=== PATIENT | female | born 2000 | race Two or more races ===

== ENCOUNTER 2024-12-03 09:33 | Emergency (ER) | payer OTHER ==
[~2024-12-03] VITALS: Ht 152.4 cm; Wt 52.2 kg
[2024-12-03] MEDS ORDERED: PRENATAL + DHA1 EAC1 (09:50)
== END 2024-12-03 13:37 | disposition home or self-care (01) ==
LOC: ER 09:35
DX: S39.83XA Other specified injuries of pelvis, initial encounter (principal); V49.88XA Car occupant (driver) (passenger) injured in other specified transport accidents, initial encounter; Y93.89 Activity, other specified; Y92.89 Other specified places as the place of occurrence of the external cause; Y99.8 Other external cause status; O26.899 Other specified pregnancy related conditions, unspecified trimester; R10.2 Pelvic and perineal pain; Z3A.15 15 weeks gestation of pregnancy; Z91.018 Allergy to other foods

== ENCOUNTER 2025-04-18 20:05 | Inpatient (IN) | payer OTHER ==
[~2025-04-18] VITALS: Ht 172.7 cm; Wt 62.1 kg
[2025-04-18 18:23] VITALS: BP 116/83
[~2025-04-18 20:05] MED LIST: PRENATAL + DHA1 EAC1
[2025-04-18] MEDS ORDERED: PROMETHAZINE HCL 25 MG/ML AMPUL IV ONE (20:30)
[2025-04-18] MEDS ORDERED: RINGERS SOLUTION,LACTATED 1,000 ML IV SCH (20:30)
[2025-04-18 20:36] LABS: BASO % 0.1 % (0.1-1.2); EOS # 0.03 (0.04-0.54); EOS % 0.2 % (0.7-7.0); LYMPH # 1.47 (1.18-3.74); LYMPH % 11.0 % (19.3-53.1); MEAN PLATELET VOLUME 10.00 fl (9.4-12.4); MONO # 1.16 (0.24-0.82); MONO % 8.7 % (4.7-12.5); NEUT # 10.55 (1.56-6.13); NEUT % 79.1 % (34.0-71.1); RED CELL DISTRIBUTION WIDTH 12.7 % (11.6-14.4); URINE APPEARANCE Clear; URINE BILIRRUBIN Negative (NEGATIVE); URINE BLOOD Negative; URINE COLOR Yellow; URINE LEUKOCYTE Trace; URINE NITRATE Negative; URINE PROTEIN Trace (NEGATIVE); URINE UROBILINOGEN 0.2 E.U./dl
[2025-04-18 20:40] LABS: URINE BACTERIA 3598.3 uL (0.0-1933); URINE EPITHELIAL CELLS 44.4 uL (0.0-38.8); URINE WBC 18.9 uL (0.0-23.2)
[2025-04-18 20:43] LABS: URINE GLUCOSE 100 MG/DL (NEGATIVE)
[2025-04-18 20:44] LABS: URINE CAST 0.43 uL (0.0-1.40); URINE KETONE 40 (NEGATIVE); URINE RBC 1.1 uL (0.0-20.8)
[2025-04-18 21:08] LABS: ALT/SGPT 34.0 U/L (12-78); AST/SGOT 32.0 U/L (15-37); BILIRUBIN TOTAL 0.42 mg/dL (0.3-1.2); BUN CREA RATIO 6.0 (7.0-25.0); CREATININE SERUM 0.69 mg/dL (0.55-1.02); GFR 105.43; GLOBULINA 3.9 G/DL (2.4-3.5); GLUCOSE FASTING 82.0 mg/dL (65-100); OSMOLALITY SERUM 274.0 MOSM/KG (275-295)
[2025-04-18] MEDS ORDERED: BETAMETHASONE ACETATE,SOD PHOS 30 MG/5 ML ML IM ONE (21:30)
[2025-04-18] MEDS ORDERED: MAGNESIUM SULFATE IN WATER 100 ML IV SCH (22:00)
[2025-04-18] MEDS ORDERED: MAGNESIUM SULFATE IN WATER 500 ML IV SCH (22:00)
[2025-04-18 23:43] VITALS: BP 119/68
[2025-04-19] VITALS (7 sets, daily range): BP systolic 91–116; BP diastolic 58–83; O2SAT 98
[2025-04-19] MEDS ORDERED: BETAMETHASONE ACETATE,SOD PHOS 30 MG/5 ML ML IM NR (21:30)
[2025-04-19 21:54] LABS: BASO % 0.1 % (0.1-1.2); EOS # 0.03 (0.04-0.54); EOS % 0.2 % (0.7-7.0); LYMPH # 1.45 (1.18-3.74); LYMPH % 11.6 % (19.3-53.1); MEAN PLATELET VOLUME 9.80 fl (9.4-12.4); MONO # 1.24 (0.24-0.82); MONO % 9.9 % (4.7-12.5); NEUT # 9.60 (1.56-6.13); NEUT % 76.8 % (34.0-71.1); RED CELL DISTRIBUTION WIDTH 12.7 % (11.6-14.4)
[2025-04-19 22:23] LABS: ALT/SGPT 28.0 U/L (12-78); AST/SGOT 23.0 U/L (15-37); BILIRUBIN TOTAL 0.21 mg/dL (0.3-1.2); BUN CREA RATIO 10.0 (7.0-25.0); CREATININE SERUM 0.58 mg/dL (0.55-1.02); GFR 128.83; GLOBULINA 3.3 G/DL (2.4-3.5); GLUCOSE FASTING 129.0 mg/dL (65-100); OSMOLALITY SERUM 282.0 MOSM/KG (275-295)
[2025-04-20 04:13] VITALS: BP 91/44
[2025-04-20 06:29] VITALS: BP 98/51; O2SAT 99
== END 2025-04-20 10:23 | disposition home or self-care (01) | DRG 833 ==
LOC: OBS/DEL 20:05 → LDR 04-19 14:12
PROVIDERS: ADMIT Obstetrics & Gynecology Gynecology; ATTEND Obstetrics & Gynecology Gynecology
PROC: 4A1HXCZ Monitoring of Products of Conception, Cardiac Rate, External Approach (ICD-10-PCS; principal; 2025-04-19)
DX: O26.893 Other specified pregnancy related conditions, third trimester (principal); R10.2 Pelvic and perineal pain; Z3A.34 34 weeks gestation of pregnancy

== ENCOUNTER 2025-04-21 13:52 | Inpatient (IN) | payer OTHER ==
[~2025-04-21] VITALS: Ht 172.7 cm; Wt 61.2 kg
[2025-04-21 13:04] VITALS: BP 121/72
[2025-04-21] MEDS ORDERED: MAGNESIUM SULFATE IN WATER 500 ML IV SCH (14:00)
[2025-04-21] MEDS ORDERED: ONDANSETRON HCL 2 MG/ML VIAL IV SCH (14:00)
[2025-04-21] MEDS ORDERED: DEXTROSE 5%-LACTATED RINGERS 1,000 ML IV SCH (14:00)
[2025-04-21] MEDS ORDERED: MAGNESIUM SULFATE IN WATER 100 ML IV ONE (14:00)
[2025-04-21 15:13] VITALS: BP 113/61
[2025-04-21] MEDS ORDERED: FERROUS SULFATE 325 MG TABLET.EC PO SCH (16:00)
[2025-04-21 19:30] VITALS: BP 136/84
[2025-04-21] MEDS ORDERED: MORPHINE SULFATE 4 MG/ML VIAL IV STA (19:49)
[2025-04-21 20:03] VITALS: BP 136/84
[2025-04-21 23:29] VITALS: BP 115/66
[2025-04-22 03:25] VITALS: BP 106/41
[2025-04-22 06:21] VITALS: BP 107/63; O2SAT 98
[2025-04-22] MEDS ORDERED: PNV,CALCIUM 72/IRON/FOLIC ACID 1 TAB TABLET PO SCH (09:00)
[2025-04-22 11:30] VITALS: BP 106/64
[2025-04-22 11:38] VITALS: BP 106/64; O2SAT 98
[2025-04-22 15:26] VITALS: BP 110/63
[2025-04-22] MEDS ORDERED: NIFEDIPINE 30 MG TAB.SA.OSM PO SCH (17:00)
[2025-04-22 17:46] VITALS: BP 111/71
[2025-04-23 02:10] VITALS: BP 100/60
[2025-04-23] MEDS ORDERED: MORPHINE SULFATE 4 MG/ML VIAL IV ONE (03:30)
[2025-04-23] MEDS ORDERED: RINGERS SOLUTION,LACTATED 1,000 ML IV SCH (04:15)
[2025-04-23 08:00] VITALS: BP 109/70
[2025-04-23] MEDS ORDERED: CYCLOBENZAPRINE HCL 5 MG TABLET PO ONE (09:00)
[2025-04-23] MEDS ORDERED: CYCLOBENZAPRINE HCL 5 MG TABLET PO NR (12:15)
[2025-04-23] MEDS ORDERED: MAGNESIUM SULFATE IN WATER 25 ML IV SCH (14:00)
[2025-04-23 16:37] VITALS: BP 112/70
[2025-04-24 02:12] VITALS: BP 100/63
[2025-04-24 08:48] VITALS: BP 108/67
[2025-04-24 16:14] VITALS: BP 105/69
[2025-04-25] VITALS: BP 118/78
[2025-04-25 08:13] VITALS: BP 114/73
[2025-04-25] MEDS ORDERED: Procardia Xl 30MG TA PO ×2 (09:59)
== END 2025-04-25 10:15 | disposition home or self-care (01) | DRG 833 ==
LOC: LDR 13:52 → OB/GYN 04-22 16:10
PROVIDERS: ADMIT Obstetrics & Gynecology Maternal & Fetal Medicine; ATTEND Obstetrics & Gynecology Maternal & Fetal Medicine
PROC: 4A1HXCZ Monitoring of Products of Conception, Cardiac Rate, External Approach (ICD-10-PCS; principal; 2025-04-21)
PROC: BW40ZZZ Ultrasonography of Abdomen (ICD-10-PCS; 2025-04-22)
DX: O47.03 False labor before 37 completed weeks of gestation, third trimester (principal); O26.893 Other specified pregnancy related conditions, third trimester; R10.2 Pelvic and perineal pain; Z3A.34 34 weeks gestation of pregnancy

== ENCOUNTER 2025-05-11 19:12 | Outpatient (CLI) | payer OTHER ==
[~2025-05-11 19:12] MED LIST changes: +Procardia Xl 30MG TA PO
== END 2025-05-11 19:50 | disposition home or self-care (01) ==
LOC: NST 19:12
PROVIDERS: ATTEND Obstetrics & Gynecology Gynecology
DX: Z34.83 Encounter for supervision of other normal pregnancy, third trimester (principal)

== ENCOUNTER 2025-05-15 15:15 | Inpatient (IN) | payer OTHER ==
[~2025-05-15] VITALS: Ht 172.7 cm; Wt 63.0 kg
[2025-05-20] VITALS (9 sets, daily range): BP systolic 119–132; BP diastolic 65–85
[2025-05-20] MEDS ORDERED: AMPICILLIN SODIUM 2,000 MG VIAL IV ONE (05:15)
[2025-05-20] MEDS ORDERED: RINGERS SOLUTION,LACTATED 1,000 ML IV SCH (05:30)
[2025-05-20 07:16] LABS: BASO % 0.3 % (0.1-1.2); EOS # 0.07 (0.04-0.54); EOS % 0.6 % (0.7-7.0); LYMPH # 1.90 (1.18-3.74); LYMPH % 17.0 % (19.3-53.1); MEAN PLATELET VOLUME 10.20 fl (9.4-12.4); MONO # 0.90 (0.24-0.82); MONO % 8.1 % (4.7-12.5); NEUT # 8.11 (1.56-6.13); NEUT % 72.7 % (34.0-71.1); RED CELL DISTRIBUTION WIDTH 14.1 % (11.6-14.4)
[2025-05-20 07:30] LABS: INR 0.98
[2025-05-20 08:00] LABS: ALT/SGPT 16.0 U/L (12-78); AST/SGOT 17.0 U/L (15-37); BILIRUBIN TOTAL 0.3 mg/dL (0.3-1.2); BUN CREA RATIO 11.0 (7.0-25.0); CREATININE SERUM 0.53 mg/dL (0.55-1.02); GFR 142.95; GLOBULINA 3.7 G/DL (2.4-3.5); GLUCOSE FASTING 76.0 mg/dL (65-100); OSMOLALITY SERUM 274.0 MOSM/KG (275-295)
[2025-05-20] MEDS ORDERED: OXYTOCIN 500 ML IV SCH (09:00)
[2025-05-20] MEDS ORDERED: AMPICILLIN SODIUM 1,000 MG VIAL IV SCH (09:00)
[2025-05-20] MEDS ORDERED: MORPHINE SULFATE 4 MG/ML CARTRIDGE IV STA (11:22)
[2025-05-20] MEDS ORDERED: OXYTOCIN 1,000 ML IV SCH (12:30)
[2025-05-20] MEDS ORDERED: LIDOCAINE HCL 1% 10ML VIAL IJ ONE (13:30)
[2025-05-20] MEDS ORDERED: OXYTOCIN 1,000 ML IV ONE (13:30)
[2025-05-20] MEDS ORDERED: CHLORHEXIDINE GLUCONATE 120 ML BOTTLE TOP SCH (13:30)
[2025-05-20] MEDS ORDERED: NALOXONE HCL 0.4 MG/ML AMPUL IV ONE (13:30)
[2025-05-20] MEDS ORDERED: CHLORHEXIDINE GLUCONATE 120 ML BOTTLE TOP ONE (13:30)
[2025-05-20] MEDS ORDERED: DOCUSATE SODIUM 100MG CAP PO SCH (17:00)
[2025-05-21] VITALS: BP 128/80
[2025-05-21 07:33] LABS: BASO % 0.2 % (0.1-1.2); EOS # 0.08 (0.04-0.54); EOS % 0.5 % (0.7-7.0); LYMPH # 2.65 (1.18-3.74); LYMPH % 15.0 % (19.3-53.1); MEAN PLATELET VOLUME 10.40 fl (9.4-12.4); MONO # 1.06 (0.24-0.82); MONO % 6.0 % (4.7-12.5); NEUT # 13.68 (1.56-6.13); NEUT % 77.1 % (34.0-71.1); RED CELL DISTRIBUTION WIDTH 14.3 % (11.6-14.4)
[2025-05-21] MEDS ORDERED: PNV,CALCIUM 72/IRON/FOLIC ACID 1 TAB TABLET PO SCH (09:00)
[2025-05-21 10:01] VITALS: BP 129/88
[2025-05-21 16:20] VITALS: BP 120/84
[2025-05-22] VITALS: BP 107/69
[2025-05-22 08:00] VITALS: BP 136/85
== END 2025-05-22 15:47 | disposition home or self-care (01) | DRG 807 ==
LOC: LDR 05-20 05:14 → OB/GYN 05-20 13:21
PROVIDERS: Obstetrics & Gynecology; ADMIT Obstetrics & Gynecology Gynecology; ATTEND Obstetrics & Gynecology Gynecology
PROC: 10E0XZZ Delivery of Products of Conception, External Approach (ICD-10-PCS; principal; 2025-05-20)
PROC: 0UQG7ZZ Repair Vagina, Via Natural or Artificial Opening (ICD-10-PCS; 2025-05-20)
PROC: 4A1HXCZ Monitoring of Products of Conception, Cardiac Rate, External Approach (ICD-10-PCS; 2025-05-20)
DX: O71.4 Obstetric high vaginal laceration alone (principal); Z37.0 Single live birth; Z3A.38 38 weeks gestation of pregnancy